=== PATIENT | female | born 1960 | race Caucasian/White ===

== ENCOUNTER 2024-05-11 11:45 | Emergency (ER) | payer MEDICAID ==
[2024-05-11] MEDS: Albuterol/Ipratropium 3.0-0.5 MG/3 ML Neb Soln NEB ONE (12:05)
[2024-05-11 12:27] LABS: BASOPHILS ABSOLUTE AUTO 0.1 x10-3/uL (0.0-0.1); EOSINOPHILS ABSOLUTE AUTO 0.1 x10-3/uL (0.0-0.8); MONOCYTES ABSOLUTE AUTO 0.5 x10-3/uL (0.3-1.0); WHITE BLOOD CELL COUNT,WBC 11.1 x10-3/uL (3.0-10.3)
[2024-05-11 12:30] LABS: BASOPHILS PERCENT AUTO 0.7 % (0.2-1.5); EOSINOPHILS PERCENT AUTO 0.8 % (0.6-8.1); HEMOGLOBIN 11.5 g/dL (11.4-15.5); LYMPHOCYTES ABSOLUTE AUTO 3.5 x10-3/uL (1.0-4.4); LYMPHOCYTES PERCENT AUTO 31.3 % (18.4-52.1); MEAN CORPUSCULAR HGB CONC 31.9 g/dL (31.9-34.8); MEAN CORPUSCULAR VOLUME 78.4 fL (76.7-100.5); MEAN PLATELET VOLUME 9.2 fL (7.1-12.4); MONOCYTES PERCENT AUTO 4.5 % (4.4-15.7); NEUTROPHILS PERCENT AUTO 62.7 % (30.8-76.2); PLATELET COUNT,PLT 268 x10(3)uL (151-488); RED CELL DISTRIBUTION WIDTH 23.5 % (12.3-16.5)
[2024-05-11 12:32] LABS: BLOOD UREA NITROGEN,BUN 52 mg/dL (7-18); CALCIUM 10.3 mg/dL (8.6-10.2); CARBON DIOXIDE,CO2 22 mmol/L (21-32); CHLORIDE,CL 100 mmol/L (100-110); CREATININE 1.1 mg/dL (0.55-1.02); ESTIMATED GFR 56 mL/min (>60); GLUCOSE RANDOM 189 mg/dL (80-116); POTASSIUM,K 4.4 mmol/L (3.5-5.3); SODIUM,NA 138 mmol/L (135-145)
[2024-05-11 12:38] LABS: A/G RATIO 0.9; ALANINE AMINOTRANSFERASE,ALT 23 U/L (12-36); ALBUMIN 3.3 g/dL (3.2-4.6); ALKALINE PHOSPHATASE 90 IU/L (56-112); ASPARTATE AMNIOTRANSFERASE,AST 18 IU/L (5-25); BILIRUBIN TOTAL 0.4 mg/dL (0.1-1.3); PROTEIN TOTAL,TP 6.9 g/dL (6.0-8.0)
[2024-05-11 12:40] LABS: BUN/CREATININE RATIO 47.3 (9-20)
[2024-05-11 12:43] LABS: RED BLOOD CELL COUNT 4.59 x10(6)uL (3.60-5.20)
[2024-05-11 12:44] LABS: TROPONIN I 41.5 pg/mL (4.0-60.3)
[2024-05-11] MEDS: Furosemide 20 MG/2 ML VIAL IVPUSH ONE (13:09)
[2024-05-11] MEDS: LORazepam 1 MG Tab PO ONE (15:08)
== END 2024-05-11 15:11 | disposition home or self-care (01) ==
LOC: FB.ED 11:45
DX: J44.1 Chronic obstructive pulmonary disease with (acute) exacerbation (principal); I11.0 Hypertensive heart disease with heart failure; I50.9 Heart failure, unspecified; I25.2 Old myocardial infarction; I48.91 Unspecified atrial fibrillation; I25.10 Atherosclerotic heart disease of native coronary artery without angina pectoris; E78.00 Pure hypercholesterolemia, unspecified; Z86.73 Personal history of transient ischemic attack (TIA), and cerebral infarction without residual deficits; Z79.899 Other long term (current) drug therapy
CPT/HCPCS: 71046; 80053; 83735; 83880; 84484; 85025; 93005; 96374; 99285; A9270; J1940

== ENCOUNTER 2024-08-01 09:28 | Emergency (ER) | payer SELFPAY ==
[2024-08-01 10:03] LABS: BLOOD UREA NITROGEN,BUN 8 mg/dL (7-18); CALCIUM 9.6 mg/dL (8.6-10.2); CARBON DIOXIDE,CO2 31 mmol/L (21-32); CHLORIDE,CL 104 mmol/L (100-110); CREATININE 0.8 mg/dL (0.55-1.02); EST CRCL DRUG DOSING (CG) 62.15 mL/min; ESTIMATED GFR 83 mL/min (>60); GLUCOSE RANDOM 108 mg/dL (80-116); MEAN CORPUSCULAR HEMOGLOBIN 20.6 pg (23.9-33.9); MEAN CORPUSCULAR HGB CONC 29.7 g/dL (31.9-34.8); MEAN CORPUSCULAR VOLUME 69.5 fL (76.7-100.5); PLATELET COUNT,PLT 287 x10(3)uL (151-488); POTASSIUM,K 3.5 mmol/L (3.5-5.3); RED BLOOD CELL COUNT 3.31 x10(6)uL (3.60-5.20); RED CELL DISTRIBUTION WIDTH 17.2 % (12.3-16.5); SODIUM,NA 141 mmol/L (135-145); WHITE BLOOD CELL COUNT,WBC 5.6 x10-3/uL (3.0-10.3)
[2024-08-01 10:05] LABS: HEMOGLOBIN 6.8 g/dL (11.4-15.5)
[2024-08-01 10:09] LABS: A/G RATIO 1.1; ALANINE AMINOTRANSFERASE,ALT 19 U/L (12-36); ALBUMIN 3.2 g/dL (3.2-4.6); ALKALINE PHOSPHATASE 93 IU/L (56-112); ASPARTATE AMNIOTRANSFERASE,AST 19 IU/L (5-25); BILIRUBIN TOTAL 0.4 mg/dL (0.1-1.3); PROTEIN TOTAL,TP 6.2 g/dL (6.0-8.0)
[2024-08-01 10:13] LABS: INR 0.98 (1.00-1.24); PROTHROMBIN TIME 10.2 sec (9.0-11.1)
[2024-08-01 10:15] LABS: PTT,PARTIAL THROMBOPLSTIN TIME 21.6 SECONDS (24.4-33.2)
[2024-08-01 10:16] LABS: TROPONIN I 48.9 pg/mL (4.0-60.3)
[2024-08-01 10:21] LABS: ANISOCYTOSIS MODERATE; BASOPHILS PERCENT MAN 2 % (0-2); EOSINOPHILS PERCENT MAN 2 % (0-5); LYMPHOCYTES PERCENT MAN 25 % (13-37); MONOCYTES PERCENT MAN 4 % (4-12); POLYCHROMASIA MODERATE; SEG NEUTROPHILS PERCENT MAN 67 % (46-82)
[2024-08-01] MEDS: Iopamidol 755 Mg/ML 100 ML Bottle IV SCH (10:38)
[2024-08-01] MEDS: Aspirin 81 MG Tab.Chew PO ONE (10:59)
[2024-08-01] MEDS: Pramipexole 0.25 MG Tab PO STA (11:00)
[2024-08-01] MEDS: Sodium Chloride 0.9% 10 ML Syringe FLUSH PRN (11:02)
[2024-08-01] MEDS: LORazepam 1 MG Tab PO ONE ×2 (11:18→16:30)
[2024-08-01] MEDS: Sodium Chloride 0.9% 250 ML IV SCH (13:07)
[2024-08-01] MEDS: Pramipexole 0.25 MG Tab PO ONE (14:13)
[2024-08-01] MEDS: Furosemide 20 MG/2 ML VIAL IVPUSH ONE (15:49)
[2024-08-01] MEDS: Nitroglycerin 0.4 MG Tab.SL SL ONE (16:31)
== END 2024-08-01 20:20 | disposition home or self-care (01) ==
LOC: FB.ED 09:28 → FB.MS 12:03 → FB.ED 12:17
DX: I11.0 Hypertensive heart disease with heart failure (principal); I50.9 Heart failure, unspecified; I48.91 Unspecified atrial fibrillation; D64.9 Anemia, unspecified; K21.9 Gastro-esophageal reflux disease without esophagitis; E78.00 Pure hypercholesterolemia, unspecified; E66.9 Obesity, unspecified; Z79.899 Other long term (current) drug therapy; Z87.891 Personal history of nicotine dependence; Z68.41 Body mass index [BMI] 40.0-44.9, adult
CPT/HCPCS: 36415; 36430; 71045; 74177; 80053; 83880; 84484; 85018; 85025; 85610; 85730; 86850; 86900; 86901; 86920; 86922; 93005; 96374; 99285; A9270; J1938; J7050; P9016; Q9967

== ENCOUNTER 2024-08-04 14:02 | Emergency (ER) | payer SELFPAY ==
[2024-08-04] MEDS: Aspirin 81 MG Tab.Chew PO ONE (14:31)
[2024-08-04 14:35] LABS: BASOPHILS ABSOLUTE AUTO 0.1 x10-3/uL (0.0-0.1); BASOPHILS PERCENT AUTO 1.4 % (0.2-1.5); EOSINOPHILS ABSOLUTE AUTO 0.2 x10-3/uL (0.0-0.8); EOSINOPHILS PERCENT AUTO 3.3 % (0.6-8.1); HEMATOCRIT 29.1 % (34.2-48.2); HEMOGLOBIN 8.7 g/dL (11.4-15.5); LYMPHOCYTES ABSOLUTE AUTO 1.6 x10-3/uL (1.0-4.4); LYMPHOCYTES PERCENT AUTO 26.7 % (18.4-52.1); MEAN CORPUSCULAR HEMOGLOBIN 20.8 pg (23.9-33.9); MEAN CORPUSCULAR VOLUME 69.4 fL (76.7-100.5); MEAN PLATELET VOLUME 7.7 fL (7.1-12.4); MONOCYTES ABSOLUTE AUTO 0.3 x10-3/uL (0.3-1.0); MONOCYTES PERCENT AUTO 4.5 % (4.4-15.7); NEUTROPHILS ABSOLUTE AUTO 3.7 x10-3/uL (1.5-6.3); NEUTROPHILS PERCENT AUTO 64.1 % (30.8-76.2); PLATELET COUNT,PLT 294 x10(3)uL (151-488); RED CELL DISTRIBUTION WIDTH 19.7 % (12.3-16.5); WHITE BLOOD CELL COUNT,WBC 5.8 x10-3/uL (3.0-10.3)
[2024-08-04 14:38] LABS: BLOOD UREA NITROGEN,BUN 5 mg/dL (7-18); BUN/CREATININE RATIO 5.6 (9-20); CALCIUM 9.4 mg/dL (8.6-10.2); CARBON DIOXIDE,CO2 31 mmol/L (21-32); CHLORIDE,CL 106 mmol/L (100-110); CREATININE 0.9 mg/dL (0.55-1.02); ESTIMATED GFR 72 mL/min (>60); GLUCOSE RANDOM 114 mg/dL (80-116); POTASSIUM,K 3.3 mmol/L (3.5-5.3); SODIUM,NA 142 mmol/L (135-145)
[2024-08-04 14:44] LABS: ALANINE AMINOTRANSFERASE,ALT 18 U/L (12-36); ALBUMIN 3.2 g/dL (3.2-4.6); ALKALINE PHOSPHATASE 96 IU/L (56-112); ASPARTATE AMNIOTRANSFERASE,AST 19 IU/L (5-25); BILIRUBIN TOTAL 0.4 mg/dL (0.1-1.3); PROTEIN TOTAL,TP 6.4 g/dL (6.0-8.0)
[2024-08-04 14:45] LABS: RED BLOOD CELL COUNT 4.19 x10(6)uL (3.60-5.20)
[2024-08-04] MEDS: Alum Hydroxide/Mag Hydroxide 15 ML, Lidocaine 2% 15 ML PO ONE (15:21)
[2024-08-04] MEDS: hydrOXYzine Pamoate 25 MG Cap PO ONE (16:13)
== END 2024-08-04 16:56 | disposition home or self-care (01) ==
LOC: FB.ED 14:02
DX: R07.2 Precordial pain (principal); R07.89 Other chest pain; D64.9 Anemia, unspecified; I48.91 Unspecified atrial fibrillation; I25.10 Atherosclerotic heart disease of native coronary artery without angina pectoris; I11.0 Hypertensive heart disease with heart failure; I50.9 Heart failure, unspecified; J44.9 Chronic obstructive pulmonary disease, unspecified; I25.2 Old myocardial infarction; K21.9 Gastro-esophageal reflux disease without esophagitis; E66.9 Obesity, unspecified; Z79.899 Other long term (current) drug therapy
CPT/HCPCS: 36415; 71045; 80053; 84484; 85025; 93005; 99285; A9270

== ENCOUNTER 2024-08-20 09:21 | Emergency (ER) | payer SELFPAY ==
[2024-08-20] MEDS: Albuterol/Ipratropium 3.0-0.5 MG/3 ML Neb Soln NEB ONE (10:00)
[2024-08-20] MEDS: Ketorolac 30 MG/ML SDV IM ONE (10:01)
[2024-08-20 10:20] LABS: BASOPHILS ABSOLUTE AUTO 0.1 x10-3/uL (0.0-0.1); BASOPHILS PERCENT AUTO 1.1 % (0.2-1.5); EOSINOPHILS ABSOLUTE AUTO 0.3 x10-3/uL (0.0-0.8); EOSINOPHILS PERCENT AUTO 3.8 % (0.6-8.1); HEMATOCRIT 34.7 % (34.2-48.2); HEMOGLOBIN 10.4 g/dL (11.4-15.5); LYMPHOCYTES ABSOLUTE AUTO 1.4 x10-3/uL (1.0-4.4); LYMPHOCYTES PERCENT AUTO 20.7 % (18.4-52.1); MEAN CORPUSCULAR HEMOGLOBIN 22.5 pg (23.9-33.9); MEAN CORPUSCULAR VOLUME 75.1 fL (76.7-100.5); MEAN PLATELET VOLUME 8.1 fL (7.1-12.4); MONOCYTES ABSOLUTE AUTO 0.3 x10-3/uL (0.3-1.0); MONOCYTES PERCENT AUTO 4.4 % (4.4-15.7); NEUTROPHILS ABSOLUTE AUTO 4.8 x10-3/uL (1.5-6.3); PLATELET COUNT,PLT 254 x10(3)uL (151-488); RED BLOOD CELL COUNT 4.62 x10(6)uL (3.60-5.20); RED CELL DISTRIBUTION WIDTH 26.6 % (12.3-16.5); WHITE BLOOD CELL COUNT,WBC 6.8 x10-3/uL (3.0-10.3)
[2024-08-20 10:28] LABS: BLOOD UREA NITROGEN,BUN 5 mg/dL (7-18); CALCIUM 9.9 mg/dL (8.6-10.2); CARBON DIOXIDE,CO2 34 mmol/L (21-32); CHLORIDE,CL 105 mmol/L (100-110); ESTIMATED GFR 63 mL/min (>60); GLUCOSE RANDOM 104 mg/dL (80-116); POTASSIUM,K 3.5 mmol/L (3.5-5.3); SODIUM,NA 141 mmol/L (135-145)
[2024-08-20 10:34] LABS: ALANINE AMINOTRANSFERASE,ALT 12 U/L (12-36); ALBUMIN 3.1 g/dL (3.2-4.6); ALKALINE PHOSPHATASE 88 IU/L (56-112); ASPARTATE AMNIOTRANSFERASE,AST 11 IU/L (5-25); BILIRUBIN TOTAL 0.3 mg/dL (0.1-1.3); PROTEIN TOTAL,TP 6.2 g/dL (6.0-8.0)
== END 2024-08-20 11:02 | disposition home or self-care (01) ==
LOC: FB.ED 09:21
DX: J44.1 Chronic obstructive pulmonary disease with (acute) exacerbation (principal); R07.89 Other chest pain; I11.0 Hypertensive heart disease with heart failure; I50.9 Heart failure, unspecified; I25.10 Atherosclerotic heart disease of native coronary artery without angina pectoris; E66.9 Obesity, unspecified; Z87.891 Personal history of nicotine dependence
CPT/HCPCS: 36415; 80053; 84484; 85025; 93005; 93010; 94640; 96372; 99284; 99285; A9270-GY; J1885